=== PATIENT | female | born 1990 | race Asian ===

== ENCOUNTER 2023-04-04 18:23 | Emergency (ER) | payer BC, SELFPAY ==
[2023-04-04 18:33] VITALS: BP 141/89
--- NOTE | 2023-04-04 20:38 | EDRN ---
scheduled. Pt stopped drinking coffee when the headache started. Pt feels dizzy. Pt states that intermittently the room moves when she changes position. over the past 3.5 weeks she has used her Maxalt and Fioricet.
[2023-04-04 22:06] VITALS: BP 120/78
[2023-04-04] MEDS: NSS 500 IV (22:17)
[2023-04-04] MEDS: TORADOL 30 MG IV (22:18)
[2023-04-04] MEDS: BENADRYL 50 MG IV (22:20)
[2023-04-04] MEDS: COMPAZINE 10 MG IV (22:24)
[2023-04-04 23:00] VITALS: BP 121/76
--- NOTE | 2023-04-04 23:27 | ED.GENMED ---
History of Present Illness
General
Chief Complaint: Headache
Source: patient
Exam Limitations: none
Time Seen by Provider: 04/04/23 21:48
Nursing documentation reviewed up to this point in time: agreed with
Travel History
Have you had any contact with someone who has COVID-19?: No
Do you have any symptoms of coronavirus? Fever > 100 degrees, chills, cough, shortness of breath, sore throat, loss of taste or smell, muscle aches, or headache?: No
History of Present Illness
History of Present Illness:
Patient to ED with complaint of migraine. Symptoms started 3.5 weeks ago. States it is not responding to her usual meds - imatrex, fioricet, maxalt, excedrin. Reports dizziness today. Brought to ED by spouse for eval. Denies fever/chills, recent
illness. Has an appt with neurology in 2 weeks, MRI scheduled
Past History
Past History
ED Past Medical History: None
ED Past Surgical History: None
Social History
Tobacco: Non-smoker
Alcohol: None
Drug: None
Personal:
Review of Systems
Review of Systems
Allergies reviewed?: Yes
All Other Systems: ROS reviewed and negative except as documented in HPI and ROS
Constitutional: Reports no symptoms
EENT: Reports no symptoms
Respiratory: Reports no symptoms
Cardiac: Reports no symptoms
ABD/GI: Reports no symptoms
: Reports no symptoms
Musculoskeletal: Reports no symptoms
Skin: Reports no symptoms
Neurological: Reports dizzy and headache
Psychiatric: Reports no symptoms
Phy Exam
General Physical Exam
General Presentation: well appearing and no apparent distress
General age: appears stated age
General Skin: warm and dry
General Habitus: normal
General Mental: alert
General Hydration: appears well hydrated
ENT Exam
ENT Exam: EOMI and TM's normal
Eye Exam
Eye Exam: PERRL, EOMI and conjunctiva normal
Neurological Exam
Neurological Exam: alert, oriented x3, CN II-XII intact, no motor deficits, no sensory deficits, speech normal and normal gait
[place] Coma Scale
Eye Opening: Spontaneous
Verbal Response: Oriented
Motor Response: Obeys Commands
GCS Total Score: 15
Mental
Mental Status: oriented to person, oriented to place, oriented to time and usual mental status
Describe Speech: normal speech
Cranial
Cranial Nerves: normal
EOM (CN3/4/6): intact
Motor
Seizure Activity: none
Gait: normal
Tremors: none
Other Movement Disorders: none
Right upper extremity: 4
Right lower extremity: 4
Left upper extremity: 4
Left lower extremity: 4
Bilateral upper extremities: 4
Bilateral lower extremities: 4
Sensory
Sensory Exam: intact
Cerebellar
Cerebellar Function: normal finger to nose and normal Romberg test
Musculoskeletal Exam
Musculoskeletal Exam: full ROM and neuro vasc intact
Skin Exam
Skin Exam: normal color, warm/dry and no rash
Psychiatric Exam
Psychiatric Exam: normal mood/affect
Course
Orders/Labs/Results
Orders:
Orders
04/04/23 19:28
Test Result ONCE
04/04/23 21:56
Diphenhydramine [Benadryl] 50 mg IV NOW STA
Ketorolac [Toradol] 30 mg IV NOW STA
Prochlorperazine [Compazine] 10 mg IV NOW STA
04/04/23 22:16
0.9% Sodium Chloride 500 ml [Nss] 500 ml IV BOLUS
04/04/23 19:28
04/04/23 19:28
Vital Signs
Initial and Last Documented VS:
Initial Vital Signs
Temp Pulse Resp BP Pulse Ox
98.9 F 95 17 141/89 99
04/04/23 18:33 04/04/23 18:33 04/04/23 18:33 04/04/23 18:33 04/04/23 18:33
Last Documented Vital Signs
Temp Pulse Resp BP Pulse Ox
98.9 F 95 17 141/89 99
04/04/23 18:33 04/04/23 18:33 04/04/23 18:33 04/04/23 18:33 04/04/23 18:33
*Critical Care Note
Total Time (30-74mins, 75-104mins- exclusive of procedures): Not Applicable
Update Note
Update Note:
Improved with migraine cocktail. SHe is discharged home and will follow upw [facility] neuro as scheduled.
ED Attending Note
-
Portions of this chart may have been created with voice recognition software.� Occasional wrong word or��sound alike� substitutions may have occurred due to the inherent limitations of voice recognition software.
Discharge Plan
Departure
Patient Disposition: Home (Routine Discharge)
Date of Disposition: 04/04/23
Time of Disposition: 23:25
Patient with high blood pressure during this ER visit?: No
Condition: Good
Covid-19: Not Applicable
Discharge Problem:
Migraine
Instructions: Migraines (DC)
Referrals:
Vandana Vasquez MD [Family Provider] - Follow up in 2-3 days
Activity Restrictions/Additional Instructions:
Return to the emergency department immediately for any changes in/worsening of your symptoms
Interventions
Interventions:
*Risk Screen - Suicide Last Done: 04/04/23 20:42
*General Assessment Last Done: 04/04/23 20:30
*Neglect/Abuse Screening Last Done: 04/04/23 20:30
ED- Fall Risk Assessment Last Done: 04/04/23 20:30
*ED COVID-19 Vaccine History Last Done: 04/04/23 18:33
ED- Neurological Assessment Last Done: 04/04/23 20:30
[2023-04-04 23:45] VITALS: BP 121/76
== END 2023-04-04 23:45 | disposition home or self-care (01) ==
LOC: EMR 18:23
PROVIDERS: EMERGENCY PHYSICIAN Emergency Medicine; FAMILY PHYSICIAN Internal Medicine Geriatric Medicine
DX: G43.909 Migraine, unspecified, not intractable, without status migrainosus (principal)
CPT/HCPCS: 99282; 96374; 96375; 96361